=== PATIENT | male | born 1985 | race Two or more races ===

== ENCOUNTER 2018-03-14 08:40 | Emergency (ER) | payer MEDICAID ==
[~2018-03-14] VITALS: Ht 167.6 cm; Wt 72.6 kg
--- NOTE | 2018-03-14 08:43 | NUR ---
ED Nurse Note: PT BROUGHT IN BY [id number] FROM HOME. AOX4. PT C/O UPPER ABDOMINAL PAIN, 10/ X 3 DAYS AGO ACCOMPANIED BY NAUSEA AND MULTIPLE EPISODES OF VOMITING X LAST NIGHT. PT DENIES DIARRHEA. ACTIVE BOWEL SOUNDS IN ALL QUADRANTS. ABDOMEN DOES NOT APPEAR DISTENDED AND IS NONTENDER TO TOUCH. LAST BM X LAST NIGHT WHICH PT STATES WAS FORMED.
[2018-03-14] MEDS ORDERED: LANTUS SOL100 UNIT/1 SUBQ (08:45)
[2018-03-14 08:47] VITALS: BP 143/96
[2018-03-14] MEDS ORDERED: Morphine Sulfate 4mg/ml Inj (IV/IM USE ONLY) IVP ONE (09:00)
--- NOTE | 2018-03-14 09:05 | Emergency Room Report ---
History of Present Illness General Chief Complaint: Abdominal Pain Source: Patient Present Illness HPI 33-year-old male history of diabetes and pancreatitis presents with epigastric sharp abdominal pain with associated nausea vomiting multiple times, he reports he had similar episodes in the past is consistent with pancreatitis. His last visit was yesterday, reports pain is sharp, nonradiating, severe. Allergies: Coded Allergies: No Known Allergies (Unverified , 03/14/18) Patient History Past Medical History: see triage record Reviewed Nursing Documentation: PMH: Agreed; PSxH: Agreed Nursing Documentation-PMH Past Medical History: No History, Except For Hx Diabetes: Yes Review of Systems All Other Systems: negative except mentioned in HPI Physical Exam Vital Signs Date Time Temp Pulse Resp B/P (MAP) Pulse Ox O2 Delivery O2 Flow Rate FiO2 03/14/18 08:40 98.2 108 18 127/88 98 Room Air Sp02 EP Interpretation: reviewed, normal General Appearance: alert, mild distress Head: normocephalic Eyes: bilateral eye normal inspection, bilateral eye PERRL, bilateral eye EOMI ENT: normal ENT inspection, hearing grossly normal, normal pharynx, no angioedema, normal voice, moist mucus membranes Neck: normal inspection, full range of motion, supple, supple/symm/no masses Respiratory: chest non-tender, lungs clear, normal breath sounds, chest symmetrical, palpation of chest normal Cardiovascular #1: normal peripheral pulses, no edema, no gallop, no JVD, no murmur, no rub, tachycardia Cardiovascular #2: 2+ radial (R), 2+ radial (L) Gastrointestinal: normal inspection, soft, no mass, no guarding, no rebound, tenderness - epiGastric tenderness Rectal: deferred Genitourinary: normal inspection, no CVA tenderness Musculoskeletal: back normal, gait/station normal, normal range of motion, non- tender, no calf tenderness Neurologic: alert, responsive, hair assistant III-XII nml as tested, motor strength/tone normal, sensory intact, speech normal Psychiatric: judgement/insight normal, memory normal, mood/affect normal Skin: normal color, no rash, warm/dry, normal turgor Lymphatic: no adenopathy Medical Decision Making Diagnostic Impression: Primary Impression: Hyperglycemia Additional Impression: Acute gastritis ER Course Patient with signs consistent with dehydration and hyperglycemia, given 2L nss, antiemetics, labs reveal hyperglycemia, no DKA, patient with soft abdomen, suspect gastritis, hyperglycemia, dehydration. WIll dc since patient passed PO challenge. EKG Diagnostic Results EKG Time: 10:09 EP Interpretation: no stemi Rate: normal Rhythm: NSR ST Segments: no acute changes ASA given to the pt in ED: No Rhythm Strip Diag. Results Rhythm Strip Time: 11:35 EP Interpretation: yes Rate: 104 Rhythm: NSR, no PVC's, no ectopy Last Vital Signs Date Time Temp Pulse Resp B/P (MAP) Pulse Ox O2 Delivery O2 Flow Rate FiO2 03/14/18 08:47 98.4 100 22 143/96 100 Room Air Disposition: HOME, SELF-CARE Condition: Stable KOMAL FRANCISCO M.D Mar 14, 2018 09:05
[2018-03-14 09:34] LABS: APPEARANCE,URINE CLEAR; BASOPHILS % (AUTO) 0.4 % (0.0-2.0); BILIRUBIN, URINE NEGATIVE (NEGATIVE); COLOR,URINE PALE YELLOW; GLUCOSE, URINE (UA) 4+ (NEGATIVE); HEMATOCRIT 48.3 % (42.0-52.0); HEMOGLOBIN 16.3 G/DL (14.2-18.0); KETONES,URINE 4+ (NEGATIVE); LEUKOCYTE ESTERASE ,URINE NEGATIVE (NEGATIVE); LYMPHOCYTES % (AUTO) 16.3 % (20.0-45.0); MEAN CORPUSCULAR VOLUME 89 FL (80-99); MONOCYTES % (AUTO) 6.3 % (1.0-10.0); NITRITE,URINE NEGATIVE (NEGATIVE); PH,URINE 5 (4.5-8.0); PLATELET COUNT 235 K/UL (150-450); PROTEIN,URINE 1+ (NEGATIVE); RED BLOOD COUNT 5.45 M/UL (4.70-6.10); RED CELL DISTRIBUTION WIDTH 11.8 % (11.6-14.8); UROBILINOGEN,URINE NORMAL MG/DL (0.0-1.0); WHITE BLOOD COUNT 12.7 K/UL (4.8-10.8)
[2018-03-14 09:52] LABS: ANION GAP 12 mmol/L (5-15); BLOOD UREA NITROGEN 12 mg/dL (7-18); CALCIUM 9.8 MG/DL (8.5-10.1); CARBON DIOXIDE 25 MMOL/L (21-32); CHLORIDE 98 MMOL/L (98-107); CREATININE 0.8 MG/DL (0.55-1.30); POTASSIUM 3.7 MMOL/L (3.5-5.1); SODIUM 135 MMOL/L (136-145)
[2018-03-14 09:57] LABS: ALANINE AMINOTRANSFERASE 40 U/L (12-78); ALKALINE PHOSPHATASE 81 U/L (46-116); ASPARTATE AMINO TRANSFERASE 18 U/L (15-37); BILIRUBIN,TOTAL 0.5 MG/DL (0.2-1.0)
[2018-03-14 10:05] VITALS: BP 154/109
--- NOTE | 2018-03-14 10:10 | NUR ---
ED Nurse Note: RT AT BEDSIDE FOR ABG
[2018-03-14] MEDS ORDERED: Insulin Human Regular 100units/ml 3ml IV ONE (10:30)
--- NOTE | 2018-03-14 11:20 | NUR ---
ED Nurse Note: PER DR. FRANCISCO, PT GIVEN 2 CUPS OF WATER TO SEE IF PT CAN TOLERATE WITHOUT VOMITING.
--- NOTE | 2018-03-14 11:50 | NUR ---
ED Nurse Note: PT TOLERATED WATER WELL. NO NAUSEA OR VOMITING. ME NOTIFIED. PT TO BE DISCHARGED SHORTLY.
[2018-03-14] MEDS ORDERED: ZOFRAN4 M1 ORAL (11:53)
[2018-03-14] MEDS ORDERED: PEPCID AC20 M2 PO (11:53)
[2018-03-14 12:02] VITALS: BP 126/90
--- NOTE | 2018-03-14 12:02 | NUR ---
ER Nurse Note: PT LAYING PEACEFULLY IN BED IN NAD. AOX4. PRESCRIPTIONS AND DISCHARGE PAPERWORK EXPLAINED TO PT. PT VERBALIZES UNDERSTANDING AND ALL QUESTIONS WERE ANSWERED. PRESCRIPTION AND DISCHARGE PAPERWORK GIVEN TO PT, IV AND ID WRISTBAND REMOVED. PT WALKED OUT OF ER WITH STEADY GAIT AND ALL BELONGINGS.
== END 2018-03-14 12:02 | disposition home or self-care (01) ==
LOC: EDBD 08:40 → EMR 09:20 → CANBEDREQ 12:06
DX: K29.00 Acute gastritis without bleeding (principal); E11.65 Type 2 diabetes mellitus with hyperglycemia
CPT/HCPCS: 36415; 36600; 80053; 80307; 81003; 82803; 83690; 85025; 96361; 96374; 96375; 99284; J1815; J2270; J2405